=== PATIENT | female | born 1985 | race Caucasian/White ===

== ENCOUNTER 2018-01-19 05:51 | Inpatient (IN) | payer SELFPAY ==
[2018-01-19] MEDS ORDERED: Oxytocin/Lactated Ringers 10 UNIT/1,000 ML BAG IV ONE (06:11)
[2018-01-19] MEDS ORDERED: Oxytocin 10 Units/1 ML SDV ONE (06:13)
[2018-01-19] MEDS ORDERED: Lactated Ringers 1,000 ML IV SCH (06:30)
[2018-01-19] MEDS ORDERED: Sodium Chloride 0.9% 10 ML Syringe FLUSH PRN (06:30)
[2018-01-19] MEDS ORDERED: Oxytocin/Lactated Ringers 10 UNIT/1,000 ML BAG IV SCH ×2 (06:30→08:14)
[2018-01-19] MEDS ORDERED: Oxytocin 10 Units/1 ML SDV IM ONE (06:30)
--- NOTE | 2018-01-19 07:51 | PCM.LDHP ---
L&D History of Present Illness - General Date of Service: 01/19/18 Admit Problem/Dx: Patient Status Order with Admit Dx/Problem 01/19/18 06:30 Patient Status [ADT] Routine Admission Diagnosis/Problem Admission Diagnosis/Problem Vaginal delivery Source of Information: Patient - History of Present Illness Introduction:: Megan Brian is a 32 year old G6 now P6006 s/p . Patient arrived to labor and delivery in advanced labor with cervical dilation of 8 cm and quickly progressed to complete. Patient reports that she started having contractions between 3 and 4 this morning. Contractions were approximately every 3-5 minutes. They're becoming more intense. She also is having some vaginal bleeding but denies any large gush of fluid or leaking of fluid. She reports she was having good movement. Timing/Duration: Reports: hour(s):, sudden onset, getting worse Location, : Reports: Abdomen, Lower back Quality: Reports: Pressure Severity: Moderate Improves with: Reports: None Worsens with: Reports: None Associated Symptoms: Reports: vaginal bleeding, mild amount. Denies: vaginal fluid Present Illness Comments:: Megan Brian is a 32 year old G6 now P6006 s/p . She was late to care starting with care at 27 weeks and her was dated by a 23 week ultrasound. Her was complicated by grand multiparity and gestational diabetes, insulin controlled, and history of macrosomia. Of note patient states that she was not taking any medications. She has had care with Dr. Puckett starting at 27 weeks gestational age. Her labs show O+ blood type with negative antibody screen. Her hemoglobin was 11.9 and platelets were 216 on 10/30/2017. She is rubella immune. Hepatitis B surface antigen was negative, HIV was negative and RPR not reported on record. Her 1 hour glucose test was elevated at 138. The other values were not able to be obtained for her 3 hour test. She was GBS negative. - Related Data Allergies/Adverse Reactions: Allergies Allergy/AdvReac Type Severity Reaction Status Date / Time No Known Allergies Allergy Verified 01/19/18 06:01 Past Medical History - Past Health History Medical/Surgical History: Denies Medical/Surgical History : 6 Para: 6 Social & Family History - Family History Family Medical History: Noncontributory - Tobacco Use Smoking Status *Q: Never Smoker Second Hand Smoke Exposure: No - Tobacco Core Measures Tobacco Use/Smoking Within Last 30 Days: No - Recreational Drug Use Recreational Drug Use: No H&P Review of Systems - Review of Systems: Review Of Systems: See Below General: Denies: Fever, Chills, Weakness, Fatigue HEENT: Denies: Sinus Congestion, Sore Throat, Visual Changes Pulmonary: Denies: Shortness of Breath, Wheezing, Cough Cardiovascular: Denies: Chest Pain, Palpitations Gastrointestinal: Denies: Abdominal Pain, Constipation, Diarrhea, Nausea, Vomiting Genitourinary: Denies: Dysuria, Frequency, Burning, Pain Musculoskeletal: Denies: Back Pain, Joint Pain, Muscle Pain Skin: Denies: Rash Neurological: Denies: Headache L&D Exam - Exam Exam: See Below - Vital Signs Vital Signs: Last Vital Signs Temp 37.0 C 01/19/18 06:00 Pulse 78 01/19/18 06:13 Resp 18 01/19/18 06:00 BP 116/78 01/19/18 06:13 Pulse Ox Weight: 121.926 kg - OB Specific Contraction Duration (sec): 60 Contraction Frequency (min): 3-5 Contraction Intensity: Moderate to Strong Movement: Active Heart Tones: Present Heart Tones per Min: 140 (Occasional early decelerations with 1 late deceleration noted) Heart Rate (FHR) Variability: Moderate (6-25 bmp) Presentation: Left Occiput Anterior (REJI) - Bansal Score Bansal Score Cervix Position: Anterior Bansal Score Consistency: Soft Bansal Score Effacement: >80% Bansal Score Dilation: > 5 cm Bansal Score Infant's Station: +1, +2 Bansal Score Total: 13 - Exam General: Alert, Oriented HEENT: EOMI Neck: Supple, Trachea Midline Lungs: Normal Respiratory Effort Cardiovascular: Regular Rate GI/Abdominal Exam: Soft, Non-Tender, No Distention Genitourinary: Normal external exam. No: Vaginal lesions Extremities: Normal Inspection, No Pedal Edema Skin: Warm, Dry, Intact Psychiatric: Alert, Normal Affect, Normal Mood - Patient Data Lab Results Last 24 hrs: Laboratory Results - last 24 hr 01/19/18 Range/Units 06:45 WBC 8.82 (3.98-10.04) K/mm3 RBC 4.62 (3.98-5.22) M/mm3 Hgb 13.4 (11.2-15.7) gm/L Hct 41.3 (34.1-44.9) % MCV 89.4 (79.4-94.8) fl MCH 29.0 (25.6-32.2) pg MCHC 32.4 (32.2-35.5) g/dl RDW Std Deviation 47.0 H (36.4-46.3) fL Plt Count 181 L (182-369) K/mm3 MPV 10.1 (9.4-12.3) fl Neut % (Auto) 66.9 (34.0-71.1) % Lymph % (Auto) 21.8 (19.3-51.7) % Taylor % (Auto) 7.9 (4.7-12.5) % Eos % (Auto) 2.6 (0.7-5.8) Baso % (Auto) 0.2 (0.1-1.2) % Neut # (Auto) 5.90 (1.56-6.13) K/mm3 Lymph # (Auto) 1.92 (1.18-3.74) K/mm3 Taylor # (Auto) 0.70 H (0.24-0.36) K/mm3 Eos # (Auto) 0.23 (0.04-0.36) K/mm3 Baso # (Auto) 0.02 (0.01-0.08) K/mm3 Result Diagrams: 01/19/18 06:45 - Problem List (1) 38 weeks gestation of SNOMED Code(s): 74299000 ICD Code: Z3A.38 - 38 WEEKS GESTATION OF Status: Acute Priority : Medium Current Visit: Yes (2) H/O macrosomia in infant in prior , currently SNOMED Code(s): 633506056 ICD Code: O09.299 - SUPRVSN OF PREG W POOR REPRODCTV OR OBSTET HISTORY, UNSP TRI Status: Acute Current Visit: Yes (3) Gestational diabetes SNOMED Code(s): 54118159 ICD Code: O24.419 - GESTATIONAL DIABETES MELLITUS IN , UNSP CONTROL Status: Acute Current Visit: Yes (4) Late care SNOMED Code(s): 170096960 ICD Code: O09.30 - SUPRVSN OF PREG W INSUFFICIENT ANTENAT CARE, UNSP TRIMESTER Status: Acute Current Visit: Yes (5) 38 weeks gestation of SNOMED Code(s): 89766264 ICD Code: Z3A.38 - 38 WEEKS GESTATION OF Status: Acute Priority : Medium Current Visit: Yes Problem List Initiated/Reviewed/Updated: Yes Orders Last 24hrs: Active Orders 24 hr Category Date Time Status Patient Status Manage Transfer [TRANSFER] Routine ADT 01/19/18 07:26 Active Patient Status [ADT] Routine ADT 01/19/18 06:30 Active Activity as Tolerated [RC] PFP Care 01/19/18 06:30 Active Communication Order [RC] ASDIRECTED Care 01/19/18 06:30 Active Heart Tones [RC] ASDIRECTED Care 01/19/18 06:30 Active Notify Provider [RC] PFP Care 01/19/18 06:30 Active Notify Provider [RC] PRN Care 01/19/18 06:30 Active Peripheral IV Care [RC] . DIRECTED Care 01/19/18 06:30 Active Vital Signs [RC] PER UNIT ROUTINE Care 01/19/18 06:30 Active TYPE AND SCREEN [BBK] Stat Lab 01/19/18 06:45 Received Lactated Ringers [Ringers, Lactated] 1,000 ml Med 01/19/18 06:30 Active IV ASDIRECTED Oxytocin/Lactated Ringers [Pitocin in LR 10 Units/1,000 Med 01/19/18 06:30 Active ML] 10 unit in 1,000 ml IV .CONTINUOUS Sodium Chloride 0.9% [Saline Flush] Med 01/19/18 06:30 Active 10 ml FLUSH ASDIRECTED PRN Electronic Heart Tones Ext w TOCO [WOMSER] Oth 01/19/18 06:30 Ordered Routine Electronic Heart Tones Internal [WOMSER] Per Unit Oth 01/19/18 06:30 Ordered Routine Peripheral IV Insertion Adult [OM.PC] Routine Oth 01/19/18 06:30 Ordered Resuscitation Status Routine Resus Stat 01/19/18 06:30 Ordered Medication Orders Lactated Ringer's (Ringers, Lactated) 1,000 mls @ 100 mls/hr IV ASDIRECTED ANUP Oxytocin/Lactated Ringer's (Pitocin In Lr 10 Units/1,000 Ml) 10 unit in 1,000 mls @ 500 mls/hr IV .CONTINUOUS ANUP Sodium Chloride (Saline Flush) 10 ml FLUSH ASDIRECTED PRN PRN Reason: Keep Vein Open Assessment/Plan Comment:: Admit to inpatient following normal spontaneous vaginal delivery Continue to monitor vitals Regular diet Continue IV fluids and Pitocin per unit protocol Monitor lochia Assist with breast-feeding as needed Anticipate discharge home on day #1 or 2 Carlos Ford M.D. 7:56 AM 01/19/2018
--- NOTE | 2018-01-19 08:02 | PCM.DEL ---
L & D Note - General Info Date of Service: 01/19/18 Mother's Due Date: 01/28/18 - Delivery Note Labor: Spontaneous Delivery Outcome: Livebirth Infant Delivery Method: Spontaneous Vaginal Delivery-Single Presentation: Left Occiput Anterior (REJI) Nuchal Cord: None Prep: Povidone-Iodine (Betadine Anesthesia Type: None Amniotic Fluid Description: Clear Episiotomy Type: None Laceration: None Placenta: Intact, Spontaneous Cord: 3 Vessels Estimated Blood Loss: 200 Resuscitation Needed: No : Bulb Syringe, Stimulated, Warmed, Gates Used Provider: Audrey Puckett Score 1 min: 8 Score 5 min: 9 Delivery Comments (Free Text/Narrative):: Stage I: Megan Brian was admitted for advanced labor with cervical dilation of 8 cm on admission. On admission her cervix was dilated to 8 cm and she quickly dilated to complete. She was GBS negative. An IV was started. She had artificial rupture membranes with clear fluid. She began pushing. Stage II: On 01/19/2018 she had a normal vaginal delivery of a live female infant at 0710. Apgars of 8 & 9. Weight of 3910 g (8 lbs 9.9 oz). Length of 21 inches. There was no nuchal cord. Infant was delivered in REJI position. The cord was doubly clamped and cut by father of . Infant was placed on mother's abdomen. Stage III: She had a spontaneous delivery of an intact placenta in Jim presentation. Three vessel cord. She was given pitocin and fundal massage. She had no lacerations. Mom and baby were stable to recovery. EBL of 200 mL. Carlos Ford MD 8:01 AM 01/19/2018 - Patient Data Vitals - Most Recent: Last Vital Signs Temp 37.0 C 01/19/18 06:00 Pulse 78 01/19/18 06:13 Resp 18 01/19/18 06:00 BP 116/78 01/19/18 06:13 Pulse Ox Weight - Most Recent: 121.926 kg Lab Results Last 24 Hours: Laboratory Results - last 24 hr 01/19/18 01/19/18 Range/Units 06:45 06:45 WBC 8.82 (3.98-10.04) K/mm3 RBC 4.62 (3.98-5.22) M/mm3 Hgb 13.4 (11.2-15.7) gm/L Hct 41.3 (34.1-44.9) % MCV 89.4 (79.4-94.8) fl MCH 29.0 (25.6-32.2) pg MCHC 32.4 (32.2-35.5) g/dl RDW Std Deviation 47.0 H (36.4-46.3) fL Plt Count 181 L (182-369) K/mm3 MPV 10.1 (9.4-12.3) fl Neut % (Auto) 66.9 (34.0-71.1) % Lymph % (Auto) 21.8 (19.3-51.7) % [place] % (Auto) 7.9 (4.7-12.5) % Eos % (Auto) 2.6 (0.7-5.8) Baso % (Auto) 0.2 (0.1-1.2) % Neut # (Auto) 5.90 (1.56-6.13) K/mm3 Lymph # (Auto) 1.92 (1.18-3.74) K/mm3 [place] # (Auto) 0.70 H (0.24-0.36) K/mm3 Eos # (Auto) 0.23 (0.04-0.36) K/mm3 Baso # (Auto) 0.02 (0.01-0.08) K/mm3 Blood Type O POSITIVE Gel Antibody Screen Negative Med Orders - Current: Current Medications Lactated Ringer's (Ringers, Lactated) 1,000 mls @ 100 mls/hr IV ASDIRECTED ANUP Oxytocin/Lactated Ringer's (Pitocin In Lr 10 Units/1,000 Ml) 10 unit in 1,000 mls @ 500 mls/hr IV .CONTINUOUS ANUP Sodium Chloride (Saline Flush) 10 ml FLUSH ASDIRECTED PRN PRN Reason: Keep Vein Open Discontinued Medications Oxytocin/Lactated Ringer's (Pitocin In Lr 10 Units/1,000 Ml) Confirm Administered Dose 10 unit in 1,000 mls @ as directed IV .STK-MED ONE Stop: 01/19/18 06:12 Oxytocin (Pitocin) Confirm Administered Dose 10 unit .ROUTE .STK-MED ONE Stop: 01/19/18 06:14 Oxytocin (Pitocin) 10 unit IM ONETIME ONE Stop: 01/19/18 06:31 - Problem List & Annotations (1) 38 weeks gestation of SNOMED Code(s): 82475289 Code(s): Z3A.38 - 38 WEEKS GESTATION OF Status: Acute Priority : Medium Current Visit: Yes (2) H/O macrosomia in in prior , currently SNOMED Code(s): 348250522 Code(s): O09.299 - SUPRVSN OF PREG W POOR REPRODCTV OR OBSTET HISTORY, UNSP TRI Status: Acute Current Visit: Yes (3) Gestational diabetes SNOMED Code(s): 14948901 Code(s): O24.419 - GESTATIONAL DIABETES MELLITUS IN , UNSP CONTROL Status: Acute Current Visit: Yes (4) Late care SNOMED Code(s): 753864636 Code(s): O09.30 - SUPRVSN OF PREG W INSUFFICIENT ANTENAT CARE, UNSP TRIMESTER Status: Acute Current Visit: Yes - Problem List Review Problem List Initiated/Reviewed/Updated: Yes - My Orders Last 24 Hours: My Active Orders 01/19/18 06:30 Patient Status [ADT] Routine Activity as Tolerated [RC] PFP Communication Order [RC] ASDIRECTED Heart Tones [RC] ASDIRECTED Notify Provider [RC] PFP Notify Provider [RC] PRN Peripheral IV Care [RC] . DIRECTED Vital Signs [RC] PER UNIT ROUTINE Lactated Ringers [Ringers, Lactated] 1,000 ml IV ASDIRECTED Oxytocin/Lactated Ringers [Pitocin in LR 10 Units/1,000 ML] 10 unit in 1,000 ml IV .CONTINUOUS Sodium Chloride 0.9% [Saline Flush] 10 ml FLUSH ASDIRECTED PRN Electronic Heart Tones Ext w TOCO [WOMSER] Routine Electronic Heart Tones Internal [WOMSER] Per Unit Routine Peripheral IV Insertion Adult [OM.PC] Routine Resuscitation Status Routine 01/19/18 06:45 TYPE AND SCREEN [BBK] Stat 01/19/18 07:26 Patient Status Manage Transfer [TRANSFER] Routine - Plan Plan:: Admit to inpatient following normal spontaneous vaginal delivery Continue to monitor vitals Regular diet Continue IV fluids and Pitocin per unit protocol Monitor lochia Assist with breast-feeding as needed Anticipate discharge home on day #1 or 2 Carlos Ford M.D. 7:56 AM 01/19/2018
[2018-01-19] MEDS ORDERED: Acetaminophen 325 MG Tab PO PRN (08:14)
[2018-01-19] MEDS ORDERED: Docusate Sodium 100 MG Cap PO PRN (08:14)
[2018-01-19] MEDS ORDERED: Benzocaine/Menthol 20%-0.5% Spray 56 GM Canister TOP PRN (08:14)
[2018-01-19] MEDS ORDERED: Witch Hazel Medicated Pads 100/Jar TOP PRN (08:14)
[2018-01-19] MEDS ORDERED: Lanolin 100% Cream 7 GM Tube TOP PRN (08:14)
[2018-01-19] MEDS ORDERED: Hydrocortisone Acetate 25 MG Supp RECTAL PRN (08:14)
[2018-01-19] MEDS: Ibuprofen 600 MG Tab PO PRN ×3 (08:32→20:40)
[2018-01-19 23:35] VITALS: BP 130/70
[2018-01-20] MEDS: Ibuprofen 600 MG Tab PO PRN (04:13)
--- NOTE | 2018-01-20 21:07 | PCM.SN ---
- Free Text/Narrative Note: Post Progress Note PPD # 1 Subjective: Doing well overall. Ambulating without difficulty. Lochia minimal. Voiding without difficulty. Tolerating regular diet without nausea or vomiting. Pain controlled with oral medications. Breast feeding with minimal difficulty. Reports that she is having some pain with with latch of the infant. Denies any bleeding or redness. Objective: Vitals: Vital Signs - 24 hr 01/19/18 01/20/18 23:31 04:00 Temperature 36.9 C Temperature [ 36.3 C Temporal] Pulse, 53 L Peripheral Respiratory 14 Rate Blood Pressure 130/70 O2 Sat by Pulse 98 Oximetry Physical Exam General: Alert and oriented, no acute distress Lungs: Clear to auscultation bilaterally Heart: Regular rate and rhythm Abdomen: Soft, minimal appropriate tenderness, non-distended, fundus midline, nontender, and below the umbilicus Extremities: trace edema in bilateral lower extremities ASSESSMENT: 32-year-old female G 6 P6006 s/p normal vaginal delivery PPD #1, complicated by grand multiparity, A2 gestational diabetes, not taking insulin prescribed, late to care PLAN: Doing well Breast feeding with minimal difficulty. Assist as needed Lochia minimal. Continue to monitor for appropriate lochia. Continue routine care Anticipate discharge home today Carlos Ford MD 10:06 AM 01/20/2018
--- NOTE | 2018-01-20 21:07 | PCM.DCSUM1 ---
Discharge Summary - Hospital Course Free Text/Narrative:: Stage I: Megan Brian was admitted for advanced labor with cervical dilation of 8 cm on admission. On admission her cervix was dilated to 8 cm and she quickly dilated to complete. She was GBS negative. An IV was started. She had artificial rupture membranes with clear fluid. She began pushing. Stage II: On 01/19/2018 she had a normal vaginal delivery of a live female infant at 0710. Apgars of 8 & 9. Weight of 3910 g (8 lbs 9.9 oz). Length of 21 inches. There was no nuchal cord. Infant was delivered in REJI position. The cord was doubly clamped and cut by father of infant. was placed on mother's abdomen. Stage III: She had a spontaneous delivery of an intact placenta in Jim presentation. Three vessel cord. She was given pitocin and fundal massage. She had no lacerations. Mom and baby were stable to recovery. EBL of 200 mL. HPI Initial Comments: Stage I: Megan Brian was admitted for advanced labor with cervical dilation of 8 cm on admission. On admission her cervix was dilated to 8 cm and she quickly dilated to complete. She was GBS negative. An IV was started. She had artificial rupture membranes with clear fluid. She began pushing. Stage II: On 01/19/2018 she had a normal vaginal delivery of a live female at 0710. Apgars of 8 & 9. Weight of 3910 g (8 lbs 9.9 oz). Length of 21 inches. There was no nuchal cord. Infant was delivered in REJI position. The cord was doubly clamped and cut by father of . was placed on mother's abdomen. Stage III: She had a spontaneous delivery of an intact placenta in Jim presentation. Three vessel cord. She was given pitocin and fundal massage. She had no lacerations. Mom and baby were stable to recovery. EBL of 200 mL. Brief History: Stage I: Megan Brian was admitted for advanced labor with cervical dilation of 8 cm on admission. On admission her cervix was dilated to 8 cm and she quickly dilated to complete. She was GBS negative. An IV was started. She had artificial rupture membranes with clear fluid. She began pushing. Stage II: On 01/19/2018 she had a normal vaginal delivery of a live female at 0710. Apgars of 8 & 9. Weight of 3910 g (8 lbs 9.9 oz). Length of 21 inches. There was no nuchal cord. was delivered in REJI position. The cord was doubly clamped and cut by father of infant. Infant was placed on mother's abdomen. Stage III: She had a spontaneous delivery of an intact placenta in Jim presentation. Three vessel cord. She was given pitocin and fundal massage. She had no lacerations. Mom and baby were stable to recovery. EBL of 200 mL. - Discharge Data Discharge Date: 01/20/18 Discharge Disposition: Home, Self-Care 01 Condition: Good - Discharge Diagnosis/Problem(s) (1) 38 weeks gestation of SNOMED Code(s): 09229969 ICD Code: Z3A.38 - 38 WEEKS GESTATION OF Status: Acute Priority : Medium (2) H/O macrosomia in in prior , currently SNOMED Code(s): 962269601 ICD Code: O09.299 - SUPRVSN OF PREG W POOR REPRODCTV OR OBSTET HISTORY, UNSP TRI Status: Acute (3) Gestational diabetes SNOMED Code(s): 97030786 ICD Code: O24.419 - GESTATIONAL DIABETES MELLITUS IN , UNSP CONTROL Status: Acute Qualifiers: Gestational diabetes mellitus control: insulin-controlled Trimester: third trimester Qualified Code(s): O24.414 - Gestational diabetes mellitus in , insulin controlled (4) Late care SNOMED Code(s): 222573325 ICD Code: O09.30 - SUPRVSN OF PREG W INSUFFICIENT ANTENAT CARE, UNSP TRIMESTER Status: Acute (5) Vaginal delivery SNOMED Code(s): 802263289 ICD Code: O80 - ENCOUNTER FOR FULL-TERM UNCOMPLICATED DELIVERY Status: Acute - Patient Summary/Data Complications: None Consults: None Hospital Course: Megan Brian was admitted for precipitous labor. She was GBS negative. On arrival she was dilated to 8 cm and she quickly progressed to complete. After an IV was started she had artificial rupture of membranes with clear fluid. She began pushing. On 01/19/2018 she had a normal vaginal delivery of a live female infant at 0710. Apgars of 8 & 9. Weight of 3910 g (8 lbs. 9.9 oz). Her course was uneventful. Her pain was well controlled and she had minimal lochia. She was ambulating, tolerating a regular diet and voiding normally. She was breast feeding. She was afebrile and her hematocrit was 41.3 on admission. She desired to be discharged home on the morning of PPD #1. Her blood type is O positive. - Patient Instructions Diet: Regular Diet as Tolerated Activity: As Tolerated Activity, Other: Nothing in the vagina for 6 weeks Driving: May Drive Today Showering/Bathing: May Shower Notify Provider of: Fever, Increased Pain, Swelling and Redness, Drainage, Nausea and/or Vomiting Other/Special Instructions: Please call physician's office if having heavy vaginal bleeding enough to soak a pad in less than an hour for several hours. Llamar la officina de olea doctora si olea tiene mucho sangrado de la vagina por 2- 3 horas. - Discharge Plan Home Medications: Home Meds Acetaminophen [Tylenol] 650 mg PO Q6H PRN tablet 01/20/18 [Rx] Benzocaine/Menthol [Dermoplast Pain Relief [place]] 1 spray TOP ASDIRECTED PRN canister 01/20/18 [Rx] Docusate Sodium [Colace] 100 mg PO BID PRN cap 01/20/18 [Rx] Hydrocortisone Acetate [Anucort-HC] 25 mg RECTAL BID PRN supp 01/20/18 [Rx] Ibuprofen [IJD: Ibuprofen] 600 mg PO Q6H PRN tablet 01/20/18 [Rx] Lanolin [Lansinoh HPA] 1 applic TOP ASDIRECTED PRN tube 01/20/18 [Rx] Patient Handouts: Home Care Instructions for Mom, Vaginal Delivery, Care After , Challenges and Solutions Referrals: Audrey Puckett MD [Primary Care Provider] - (Follow-up in 6 weeks or earlier as needed for routine appointment. Regresar a la clinica por la jackie regular en seis semanas.) - Discharge Summary/Plan Comment DC Time >30 min.: No - Patient Data Vitals - Most Recent: Last Vital Signs Temp 36.3 C 01/20/18 04:00 Pulse 53 L 01/19/18 23:31 Resp 14 01/19/18 23:31 BP 130/70 01/19/18 23:31 Pulse Ox 98 01/19/18 23:31 Weight - Most Recent: 121.926 kg I&O - Last 24 hours: Intake & Output 01/20/18 01/20/18 01/20/18 06:59 14:59 22:59 Intake Total 0 Balance 0 Med Orders - Current: Current Medications Discontinued Medications Acetaminophen (Tylenol) 650 mg PO Q6H PRN PRN Reason: mild pain or fever Last Admin: 01/20/18 00:12 Dose: 650 mg Benzocaine/Menthol (Dermoplast Pain Relief [place]) 0 gm TOP ASDIRECTED PRN PRN Reason: Perineal Comfort Measure Last Admin: 01/19/18 08:34 Dose: 1 can Docusate Sodium (Colace) 100 mg PO BID PRN PRN Reason: Constipation Emollient Ointment (Lansinoh Hpa) 0 gm TOP ASDIRECTED PRN PRN Reason: Sore Nipples Last Admin: 01/20/18 08:28 Dose: 1 tube Hydrocortisone Acetate (Anucort-Hc) 25 mg RECTAL BID PRN PRN Reason: Hemorrhoid pain Oxytocin/Lactated Ringer's (Pitocin In Lr 10 Units/1,000 Ml) Confirm Administered Dose 10 unit in 1,000 mls @ as directed IV .STK-MED ONE Stop: 01/19/18 06:12 Last Admin: 01/19/18 11:41 Dose: Not Given Lactated Ringer's (Ringers, Lactated) 1,000 mls @ 100 mls/hr IV ASDIRECTED ANUP Oxytocin/Lactated Ringer's (Pitocin In Lr 10 Units/1,000 Ml) 10 unit in 1,000 mls @ 500 mls/hr IV .CONTINUOUS ANUP Oxytocin/Lactated Ringer's (Pitocin In Lr 10 Units/1,000 Ml) 10 unit in 1,000 mls @ 100 mls/hr IV TITRATE ANUP; Protocol Last Admin: 01/19/18 07:15 Dose: 500 mls/hr, 500 mls/hr Ibuprofen (Motrin) 600 mg PO Q6H PRN PRN Reason: Mild pain or fever Last Admin: 01/20/18 04:13 Dose: 600 mg Oxytocin (Pitocin) Confirm Administered Dose 10 unit .ROUTE .STK-MED ONE Stop: 01/19/18 06:14 Last Admin: 01/19/18 11:40 Dose: Not Given Oxytocin (Pitocin) 10 unit IM ONETIME ONE Stop: 01/19/18 06:31 Last Admin: 01/19/18 11:40 Dose: Not Given Sodium Chloride (Saline Flush) 10 ml FLUSH ASDIRECTED PRN PRN Reason: Keep Vein Open [place] (Tucks) 1 pad TOP ASDIRECTED PRN PRN Reason: Hemorrhoid pain Last Admin: 01/19/18 08:33 Dose: 1 tub
== END 2018-01-20 10:30 | disposition home or self-care (01) | DRG 775 ==
LOC: JD.OB 05:51 → JD.OBCHECK 05:51 → JD.OB 06:34 → OBSVTOIN 07:10 → JD.OB 07:11
PROVIDERS: ADMIT Obstetrics & Gynecology; ATTEND Obstetrics & Gynecology
PROC: 10E0XZZ Delivery of Products of Conception, External Approach (ICD-10-PCS; principal; 2018-01-19)
PROC: 10907ZC Drainage of Amniotic Fluid, Therapeutic from Products of Conception, Via Natural or Artificial Opening (ICD-10-PCS; 2018-01-19)
DX: O24.424 Gestational diabetes mellitus in childbirth, insulin controlled (principal); Z37.0 Single live birth; O62.3 Precipitate labor; Z3A.38 38 weeks gestation of pregnancy; Z91.14 Patient's other noncompliance with medication regimen
CPT/HCPCS: 36415; 59025; 59409; 85025; 86850; 86900; 86901; A9270-GY; J2590